=== PATIENT | female | born 1960 | race Caucasian/White ===

== ENCOUNTER → 2016-10-14 | Outpatient (CLI) | payer BC ==
--- NOTE | 2016-10-14 13:08 | RAD ---
Indication pain. AP oblique and lateral views of the left knee were obtained and are compared to an exam almost 2 years earlier. There is suspect bony demineralization. There is patellofemoral narrowing. An acute bony finding is not seen. There is a possible loose body in the joint. IMPRESSION: No acute finding seen
== END | disposition home or self-care (01) ==
LOC: DXRADRC 12:16
PROVIDERS: ATTEND Nurse Practitioner Family
DX: M25.562 Pain in left knee (principal)
CPT/HCPCS: 73562

== ENCOUNTER → 2016-12-05 | Outpatient (CLI) | payer BC ==
--- NOTE | 2016-12-05 15:02 | RAD ---
Exam: Left foot radiograph 12/05/2016 at 1455 hours Indication: Left foot and heel pain. Comparison: Left foot radiograph 07/24/2014 Technique: 3 views the left foot are provided. Findings: There is no acute fracture or dislocation. There is joint space narrowing involving the tarsometatarsal joints, similar in appearance dating back to 07/24/2014.. No soft tissue swelling. No osseous erosion or soft tissue gas. Bone mineralization is within normal limits. Impression: 1. No acute fracture or dislocation. 2. Moderate osteoarthrosis of the tarsometatarsal joints.
== END | disposition home or self-care (01) ==
LOC: DXRADRC 14:49
PROVIDERS: ATTEND Physician Assistant Medical
DX: M19.072 Primary osteoarthritis, left ankle and foot (principal)
CPT/HCPCS: 73630

== ENCOUNTER → 2017-07-14 | Outpatient (CLI) | payer BC ==
--- NOTE | 2017-07-14 16:21 | RAD ---
2 view right elbow 07/14/2017 Clinical indication: Right elbow pain with no known injury. Comparison: None. Findings: AP and lateral views were obtained. No acute fracture or genetic malalignment. No significant elbow joint effusion. Normal bony alignment. Impression: No acute osseous abnormality.
== END | disposition home or self-care (01) ==
LOC: PMG 16:01
PROVIDERS: ATTEND Nurse Practitioner Family
DX: M25.521 Pain in right elbow (principal)
CPT/HCPCS: 73070

== ENCOUNTER 2018-06-23 10:31 | Emergency (ER) | payer BC, OTHER ==
[~2018-06-23] VITALS: Ht 154.9 cm; Wt 54.4 kg
[2018-06-23 10:36] VITALS: BP 146/68
--- NOTE | 2018-06-23 11:08 | PHYS DOC ---
Past History Past Medical History: Hypothyroid Past Surgical History: Hysterectomy, Other Alcohol Use: None Drug Use: None Adult General Chief Complaint Chief Complaint: LOWER EXT PAIN HPI HPI Patient is a 57 year old female who presents with complaining of injury to right knee. Patient states she slipped on an egg while she was at work at [employer] about an hour prior to come to emergency room and landed on right knee without head injury or other injuries. Patient complaining of pain in right knee and rated her pain 10 over 10 with bearing weight and 7/10 with rest. Patient states she felt a pop in her knee. Patient denies focal neuro deficit, nausea and vomiting, chest pain, shortness of breath. Review of Systems Review of Systems Constitutional: Denies fever or chills [] Eyes: Denies change in visual acuity, redness, or eye pain [] HENT: Denies nasal congestion or sore throat [] Respiratory: Denies cough or shortness of breath [] Cardiovascular: No additional information not addressed in HPI [] GI: Denies abdominal pain, nausea, vomiting, bloody stools or diarrhea [] : Denies dysuria or hematuria [] Musculoskeletal: Denies back pain, reports joint pain [] Integument: Denies rash or skin lesions [] Neurologic: Denies headache, focal weakness or sensory changes [] Endocrine: Denies polyuria or polydipsia [] All other systems were reviewed and found to be within normal limits, except as documented in this note. Current Medications Current Medications Current Medications Medications (Trade) Dose Ordered Sig/Trell Start Time Stop Time Status Last Admin Dose Admin Ibuprofen (Motrin) 600 mg 1X ONCE 06/23/18 11:00 06/23/18 11:01 UNV Physical Exam Physical Exam Constitutional: Well developed, well nourished, mild distress, non-toxic appearance. [] HENT: Normocephalic, atraumatic. Eyes: PERRLA, EOMI, conjunctiva normal, no discharge. [] Neck: Normal range of motion, no tenderness, supple, no stridor. [] Cardiovascular:Heart rate regular rhythm, no murmur [] Lungs & Thorax: Bilateral breath sounds clear to auscultation [] Extremities: Right knee without deformity , mild edema, painful range of motion without neurovascular deficit. Neurologic: Alert and oriented X 3, normal motor function, normal sensory function, no focal deficits noted. [] Psychologic: Affect normal, judgement normal, mood normal. [] Current Patient Data Vital Signs Vital Signs Date Time Temp Pulse Resp B/P (MAP) Pulse Ox O2 Delivery O2 Flow Rate FiO2 06/23/18 10:36 98.3 80 16 98 Room Air EKG EKG [] Radiology/Procedures Radiology/Procedures [place] [id number] IMAGING REPORT Signed PATIENT: ROHAN ROJAS ACCOUNT: [id number] : 1960 LOCATION: ER AGE: 57 SEX: F EXAM STATUS: REG ER ORD. PHYSICIAN: MARCELINA ALCARAZ MD REASON: injury PROCEDURE: KNEE RIGHT 4V Right knee radiograph 06/23/2018 10:54 AM INDICATION: Injury to the right knee. COMPARISON: None available. TECHNIQUE: 3 views of the right knee are provided. FINDINGS: There is no acute fracture or dislocation. Bone mineralization is within normal limits. There is no knee joint effusion. There is mild medial femorotibial joint space narrowing with marginal osteophytosis. There is patellofemoral joint space narrowing with marginal osteophytosis. Regional soft tissues are within normal limits. There is no soft tissue gas or osseous erosion. IMPRESSION: No acute fracture or dislocation. Moderate medial femorotibial and patellofemoral osteoarthrosis. Electronically signed by: Baldo Horner MD (06/23/2018 11:15 AM) [id number] DICTATED AND SIGNED BY: BALDO HORNER MD DATE: 06/23/18 1115 CC: MARCELINA ALCARAZ MD; IGGY ALEJO ~ Course & Med Decision Making Course & Med Decision Making Pertinent Imaging studies reviewed. (See chart for details) The patient in ER showed 57-year-old male patient with a fall at force and injury to right knee. Patient had unremarkable x-ray of the except for chronic osteoarthritis. Randall wrap was applied and crutches was provided. Patient was advised to follow up with her primary care physician or work comp clinic Dragon Disclaimer Dragon Disclaimer This electronic medical record was generated, in whole or in part, using a voice recognition dictation system. Departure Departure: Impression: Primary Impression: Right knee sprain Disposition: HOME, SELF-CARE (at 11:33) Condition: IMPROVED Referrals: IGGY ALEJO (PCP) Patient Instructions: Knee Sprain Additional Instructions: Apply ice on the affected area Follow-up with your primary care physician in 3-5 days Return to ER if not getting better Use provided crutches Scripts Ibuprofen (IBUPROFEN) 600 Mg Tablet 600 MG PO TID for pain, #20 TAB Prov: MARCELINA ALCARAZ MD 06/23/18 Tramadol Hcl (ULTRAM) 50 Mg Tablet 50 MG PO PRN Q6HRS PRN for PAIN, #20 TAB Prov: MARCELINA ALCARAZ MD 06/23/18 Problem Qualifiers Primary Impression: Right knee sprain Encounter type: initial encounter Involved ligament of knee: unspecified ligament Qualified Codes: S83.91XA - Sprain of unspecified site of right knee , initial encounter MARCELINA ALCARAZ MD Jun 23, 2018 11:08
[2018-06-23] MEDS ORDERED: IBUPROFEN 600 MG TABLET. PO ONE (11:15)
--- NOTE | 2018-06-23 11:18 | RAD ---
Right knee radiograph 06/23/2018 10:54 AM INDICATION: Injury to the right knee. COMPARISON: None available. TECHNIQUE: 3 views of the right knee are provided. FINDINGS: There is no acute fracture or dislocation. Bone mineralization is within normal limits. There is no knee joint effusion. There is mild medial femorotibial joint space narrowing with marginal osteophytosis. There is patellofemoral joint space narrowing with marginal osteophytosis. Regional soft tissues are within normal limits. There is no soft tissue gas or osseous erosion. IMPRESSION: No acute fracture or dislocation. Moderate medial femorotibial and patellofemoral osteoarthrosis. Electronically signed by: Shaina Cheung MD (06/23/2018 11:15 AM) [id number]
[2018-06-23] MEDS ORDERED: IBUP600T16 PO (11:35)
[2018-06-23] MEDS ORDERED: TRAM-48 PO (11:35)
== END 2018-06-23 11:51 | disposition home or self-care (01) ==
LOC: ER 10:31
DX: S83.91XA Sprain of unspecified site of right knee, initial encounter (principal); E03.9 Hypothyroidism, unspecified; W01.0XXA Fall on same level from slipping, tripping and stumbling without subsequent striking against object, initial encounter; Y93.89 Activity, other specified; Y92.89 Other specified places as the place of occurrence of the external cause; Y99.0 Civilian activity done for income or pay
CPT/HCPCS: 73564; 99283